=== PATIENT | male | born 1985 | race Caucasian/White ===

== ENCOUNTER 2021-10-01 17:34 | Emergency (ER) | payer OTHER ==
[~2021-10-01] VITALS: Ht 180.3 cm; Wt 153.8 kg
[2021-10-01] MEDS ORDERED: HYDROXYZINE HCL50 MG PO (19:20)
[2021-10-01] MEDS ORDERED: ATIVAN1 MG PO (19:21)
[2021-10-01] MEDS ORDERED: VENTOLIN HFA18 GM INH (19:21)
[2021-10-01] MEDS ORDERED: LISINOPRIL20 MG PO (19:22)
[2021-10-01] MEDS ORDERED: LIPITOR10 MG PO (19:22)
[2021-10-01] MEDS ORDERED: K-TAB ER20 MEQ PO (19:23)
[2021-10-01] MEDS ORDERED: RIZATRIPTAN10 MG PO (19:24)
[2021-10-01] MEDS ORDERED: NASACORT10.8 ML NAS (19:25)
[2021-10-01] MEDS ORDERED: VITAMIN D350 MC3 PO (19:26)
[2021-10-01] MEDS ORDERED: CYCLOBENZAPRINE10 MG PO (21:12)
--- NOTE | 2021-10-02 17:51 | EKG ---
[facility] [address] [place], [place] [address] Signed Normal sinus rhythm Possible Inferior infarct , age undetermined Abnormal ECG No previous ECGs available Confirmed by SHAYNA YANCEY MD ([id number] on 10/02/2021 5:51:12 PM Electronically Signed By: SHAYNA YANCEY MD 10/02/[id number] PATIENT NAME: MELISSA PEDERSEN Electrocardiogram DATE OF : 81 PHYSICIAN: SHAYNA YANCEY MD REPORT #: [id number] REPORT IS CONFIDENTIAL AND NOT TO BE RELEASED WITHOUT AUTHORIZATION
== END 2021-10-01 21:29 | disposition home or self-care (01) ==
LOC: ED 17:34
DX: R07.89 Other chest pain (principal); I25.2 Old myocardial infarction; I50.9 Heart failure, unspecified; Z79.899 Other long term (current) drug therapy; Z88.8 Allergy status to other drugs, medicaments and biological substances
CPT/HCPCS: 36415; 71045; 80053; 83735; 84484; 85025; 93005; 93010; 99285-25; A9270